=== PATIENT | male | born 1960 | race Caucasian/White ===

== ENCOUNTER → 2022-03-07 | Outpatient (CLI) | payer OTHER ==
[~2022-03-07] MED LIST: ASPI81CH PO; LISHYD2025 PO; METF500C PO; NAPR220 PO; PRAV20 PO; PROP10 PO
[2022-03-13 12:21] LABS: Stool Occult Bld Immuno 1 Positive (NEGATIVE)
== END | disposition home or self-care (01) ==
LOC: LAB 12:00 → LAB SHORT 12:00
PROVIDERS: Physician Assistant
DX: Z12.11 Encounter for screening for malignant neoplasm of colon (principal)
CPT/HCPCS: G0328

== ENCOUNTER 2023-02-12 07:51 | Day surgery (SDC) | payer OTHER ==
[~2023-02-12] VITALS: Ht 180.3 cm; Wt 137.4 kg
[~2023-02-12 07:51] MED LIST changes: +HYDCHL25 PO; +IRBE150 PO; +METO100ER PO; +SPIR25 PO; +ZOCOR20 MG PO
[2023-02-12] MEDS ORDERED: DICLOFENAC SOD100 GM (08:11)
[2023-02-12 10:18] VITALS: BP 112/69
== END 2023-02-12 10:17 | disposition home or self-care (01) ==
LOC: ORSCSDS 07:51
PROVIDERS: Student in an Organized Health Care Education/Training Program
PROC: 0DBN8ZX Excision of Sigmoid Colon, Via Natural or Artificial Opening Endoscopic, Diagnostic (ICD-10-PCS; principal; 2023-02-12 09:15)
PROC: 0DBM8ZX Excision of Descending Colon, Via Natural or Artificial Opening Endoscopic, Diagnostic (ICD-10-PCS; principal; 2023-02-12 09:15)
PROC: 0DBH8ZX Excision of Cecum, Via Natural or Artificial Opening Endoscopic, Diagnostic (ICD-10-PCS; principal; 2023-02-12 09:15)
PROC: 0DBP8ZX Excision of Rectum, Via Natural or Artificial Opening Endoscopic, Diagnostic (ICD-10-PCS; principal; 2023-02-12 09:15)
PROC: 0DBL8ZX Excision of Transverse Colon, Via Natural or Artificial Opening Endoscopic, Diagnostic (ICD-10-PCS; principal; 2023-02-12 09:15)
PROC: 0DBK8ZX Excision of Ascending Colon, Via Natural or Artificial Opening Endoscopic, Diagnostic (ICD-10-PCS; principal; 2023-02-12 09:15)
DX: K92.1 Melena (principal); D12.0 Benign neoplasm of cecum; D12.3 Benign neoplasm of transverse colon; D12.4 Benign neoplasm of descending colon; K63.5 Polyp of colon; K62.1 Rectal polyp; K57.30 Diverticulosis of large intestine without perforation or abscess without bleeding; K64.4 Residual hemorrhoidal skin tags; I10 Essential (primary) hypertension; E78.5 Hyperlipidemia, unspecified; E11.9 Type 2 diabetes mellitus without complications; E66.01 Morbid (severe) obesity due to excess calories; Z68.41 Body mass index [BMI] 40.0-44.9, adult; Z79.84 Long term (current) use of oral hypoglycemic drugs; Z79.899 Other long term (current) drug therapy
CPT/HCPCS: 82947; 88305; J2704; J7120

== ENCOUNTER 2024-01-22 11:19 | Day surgery (SDC) | payer OTHER ==
[~2024-01-22] VITALS: Ht 180.3 cm; Wt 120.6 kg
[~2024-01-22 11:19] MED LIST changes: +DICLOFENAC SOD100 GM TOP; +METF500 PO; +OZEMPIC0.25 MG/02 SC
[2024-01-22] MEDS ORDERED: OxyCODONE HCL 10 MG TABCR PO SCH (12:25)
[2024-01-22] MEDS ORDERED: CeFAZolin Sodium 2,000 MG in NS 100 ML IV SCH (12:25)
[2024-01-22] MEDS ORDERED: Acetaminophen 500 MG Tab PO SCH (12:25)
[2024-01-22] MEDS ORDERED: Lactated Ringer's 1,000 ML IV SCH (12:25)
[2024-01-22] MEDS ORDERED: Chlorhexidine Mouth Care 15 ML UDC MT SCH (12:25)
[2024-01-22] MEDS ORDERED: Ropivacaine 0.5% HCl/Pf 123.125 MG,EPINEPHrine HCL 0.25 MG,Ketorolac Tromethamine 15 MG... INFIL SCH (12:25)
[2024-01-22] MEDS ORDERED: CeFAZolin Sodium 3,000 MG in NS 100 ML IV SCH (12:40)
[2024-01-22 12:49] VITALS: BP 140/85
[2024-01-22] MEDS ORDERED: Tranexamic Acid 100 ML IV SCH (12:55)
--- NOTE | 2024-01-22 13:04 | NUR ---
Ambulatory in Day SurgeryPre-Op teaching done. Pt verbalizes understanding. History, Chart, Medications and Allergies reviewed before start of procedure.Patient confirms NPO status and agrees with scheduled surgery.
[2024-01-22] MEDS ORDERED: Vancomycin HCL 1,000 MG in NS 100 ML IV SCH (13:35)
--- NOTE | 2024-01-22 15:05 | NUR ---
DR ROCHA AT BEDSIDE DISCUSSING PLAN OF CARE WITH PT. PLAN TO CANCEL NOW AND WILL RESCHEDULE NEXT WEEK. DR ROCHA'S OFFICE STAFF WILL CONTACT PT FOR NEW SURGERY DATE. PT STATES HE DOES NOT HAVE A RIDE HOME. SHAHRAM DEVLIN CHARGE CALLED TO [facility]SING [employer] AND PLAN TO GIVE PT A [employer] [facility] [employer] [facility]. PAPERWORK WILL BE FILLED OUT FOR THIS. PT STATES AN UNDERSTANDING ABOUT NEW PLAN OF CARE. QUESTIONS ANSWERED.
[2024-01-22 15:18] VITALS: BP 152/75
--- NOTE | 2024-01-22 15:48 | NUR ---
Patient up to Ambulate independently. Gait steady. Discharged via wheelchair to home via Taxi by Mary
== END 2024-01-22 15:49 | disposition home or self-care (01) ==
LOC: ORSCMMR 11:19 → ORD 14:00 → ORSCMMR 15:49
DX: M17.12 Unilateral primary osteoarthritis, left knee (principal); Z53.9 Procedure and treatment not carried out, unspecified reason
CPT/HCPCS: 82947; A9270; J0171; J0690; J0735; J1885; J2795; J3370; J7120

== ENCOUNTER 2024-01-30 11:12 | Day surgery (SDC) | payer OTHER ==
[~2024-01-30] VITALS: Ht 180.3 cm; Wt 123.1 kg
[2024-01-30] VITALS (13 sets, daily range): BP systolic 100–125; BP diastolic 53–92
[2024-01-30] MEDS ORDERED: Chlorhexidine Mouth Care 15 ML UDC MT SCH (12:10)
[2024-01-30] MEDS ORDERED: Tranexamic Acid 1,000 MG in NS 100 ML IV SCH (12:10)
[2024-01-30] MEDS ORDERED: Ropivacaine 0.5% HCl/Pf 123.125 MG,EPINEPHrine HCL 0.25 MG,Ketorolac Tromethamine 15 MG... INFIL SCH (12:10)
[2024-01-30] MEDS ORDERED: Vancomycin HCL 1,000 MG in NS 100 ML IV SCH (12:10)
[2024-01-30] MEDS ORDERED: OxyCODONE HCL 10 MG TABCR PO SCH (12:10)
[2024-01-30] MEDS ORDERED: CeFAZolin Sodium 3,000 MG in NS 100 ML IV SCH ×2 (12:10→22:00)
[2024-01-30] MEDS ORDERED: Acetaminophen 500 MG Tab PO SCH ×2 (12:10→16:00)
[2024-01-30] MEDS ORDERED: Lactated Ringer's 1,000 ML IV SCH ×2 (12:10→13:10)
[2024-01-30] MEDS ORDERED: propofoL 40 ML IV ONE ×2 (12:13→15:54)
[2024-01-30] MEDS ORDERED: FentaNYL Citrate 50 MCG/ML 2 ML Injection ONE (12:13)
[2024-01-30] MEDS ORDERED: Bupivacaine 0.5% HCl 5 MG/ML 30MLVIAL ONE (12:17)
[2024-01-30] MEDS ORDERED: EpiNEPhrine 1 MG/1 ML 1ML Vial ONE (12:17)
[2024-01-30] MEDS ORDERED: Midazolam HCl 1MG / ML 2ML Vial IV PRN (12:30)
[2024-01-30] MEDS ORDERED: Lidocaine HCl 1% 5 ML SYR XX SCH (12:30)
[2024-01-30] MEDS ORDERED: Tranexamic Acid 100 ML IV SCH (12:30)
--- NOTE | 2024-01-30 13:02 | NUR ---
PT TO SDS VIA WC. PT ABLE TO STAND FOR HEIGHT/WEIGHT. History, Chart, Medications and Allergies reviewed before start of procedure. Lungs clear T/O to Auscultation. Patient confirms NPO status and agrees with scheduled surgery. Pre-Op teaching done. Pt verbalizes understanding. PT BELONGINGS PLACED UNDERNEATH GURNEY FOR SAFEKEEPING. PT GLASSES TAKEN TO PACU FOR SAFEKEEPING.
[2024-01-30] MEDS ORDERED: Promethazine HCl 25 MG Tab PO PRN (13:05)
[2024-01-30] MEDS ORDERED: OxyCODONE HCL 5 MG TAB PO PRN ×2 (13:05)
[2024-01-30] MEDS ORDERED: HYDROmorphone HCl/Pf 1MG SYR IV PRN (13:10)
[2024-01-30] MEDS ORDERED: Metoclopramide HCl 5MG / ML 2ML Vial IV PRN (13:10)
[2024-01-30] MEDS ORDERED: Bisacodyl 10 MG Supp PR PRN (13:10)
[2024-01-30] MEDS ORDERED: Ondansetron HCl 2 MG / ML 2ML Vial IV PRN (13:10)
[2024-01-30] MEDS ORDERED: Magnesium Hydroxide Conc 10 ML UDC PO PRN (13:10)
[2024-01-30] MEDS ORDERED: DiphenhydrAMINE HCL 25 MG Cap PO PRN (13:15)
[2024-01-30] MEDS ORDERED: ePHEDrine Sulfate 50 MG/ML 1ML Injection ONE (14:24)
[2024-01-30] MEDS ORDERED: Vasopressin 20 UNITS/ML 1ML Vial ONE (14:30)
[2024-01-30] MEDS ORDERED: Vancomycin HCl 1000 MG ADDvantage ONE (14:35)
[2024-01-30] MEDS ORDERED: Atropine Sulfate 0.4 MG/1 ML Vial ONE (14:41)
[2024-01-30] MEDS ORDERED: Glycopyrrolate 0.2 MG/ML 5ML VIAL ONE (14:41)
[2024-01-30] MEDS ORDERED: propofoL 80 ML IV ONE (14:44)
[2024-01-30] MEDS ORDERED: Phenylephrine HCl 100 MCG/ML-NS 10MLSYR (1MG/10ML) ONE (15:57)
[2024-01-30] MEDS ORDERED: propofoL 20 ML IV ONE (16:24)
[2024-01-30] MEDS ORDERED: Insulin Regular 100 UNIT/ML 10ML Vial SC SCH (16:30)
[2024-01-30] MEDS ORDERED: MetFORMIN HCl 500 mg PO SCH (17:00)
[2024-01-30] MEDS ORDERED: Ketorolac Tromethamine 15mg Vial IV SCH (18:00)
--- NOTE | 2024-01-30 18:23 | NUR ---
SHIFT SUMMARY PT ARRIVED TO HIS ROOM FROM PACU AT APPROXIMATELY 1800. PT A&OX4 UPON ARRIVAL TO THE ROOM. PT IS ABLE TO MOVE BLE. PT DENIES PAIN. PT TOLERATING PO. CALL LIGHT WITHIN REACH.
[2024-01-30] MEDS ORDERED: Calcium Carbonate 500 MG Tab Chew PO PRN (20:10)
[2024-01-30] MEDS ORDERED: Atorvastatin 10 MG Tab PO SCH (21:00)
[2024-01-30] MEDS ORDERED: Irbesartan 150 MG Tab PO SCH (21:00)
[2024-01-30] MEDS ORDERED: Docusate Sodium 100 MG Cap PO SCH (21:00)
[2024-01-31 00:13] VITALS: BP 115/68
[2024-01-31 00:14] VITALS: BP 115/68
[2024-01-31] MEDS ORDERED: Vancomycin HCL 1,000 MG in NS 100 ML IV SCH (01:00)
[2024-01-31 05:38] LABS: BASOPHILS ABSOLUTE AUTO 0.02 K/mm3 (0.00-0.23); BASOPHILS PERCENT AUTO 0 % (0-2); EOSINOPHILS ABSOLUTE AUTO 0.09 K/mm3 (0.00-0.68); EOSINOPHILS PERCENT AUTO 1 % (0-6); Hematocrit 33.8 % (37.0-53.0); Hemoglobin 10.9 g/dL (13.5-17.5); IMMATURE GRAN ABSOLUTE AUTO 0.03 K/mm3 (0.00-0.10); IMMATURE GRAN PERCENT AUTO 0 % (0-1); LYMPHOCYTES PERCENT AUTO 15 % (21-46); MONOCYTES ABSOLUTE AUTO 0.82 K/mm3 (0.16-1.47); MONOCYTES PERCENT AUTO 12 % (4-13); Mean Corpuscular HGB 31.6 pg (26.0-34.0); Mean Corpuscular HGB Conc 32.2 g/dL (31.5-36.5); Mean Corpuscular Volume 98 fL (80-100); Mean Platelet Volume 10.1 fL (9.1-12.4); NEUTROPHILS ABSOLUTE AUTO 5.07 K/mm3 (1.96-9.15); NEUTROPHILS PERCENT AUTO 71 % (41-73); Platelet Count 177 K/mm3 (150-400); RDW Coefficient Variation 13.3 % (11.7-14.2); RDW Standard Deviation 47.1 fL (35.1-46.3); Red Blood Cell Count 3.45 M/mm3 (4.30-5.90); White Blood Cell Count 7.13 K/mm3 (4.00-11.30)
[2024-01-31 06:10] LABS: Bun/Creatinine Ratio 24.1 (12.0-20.0); Calcium, Blood 8.9 mg/dL (8.5-10.1); Creatinine, Blood 1.37 mg/dL (0.60-1.20); Magnesium, Blood 1.8 mg/dL (1.6-2.4); Potassium, Blood 4.4 mmol/L (3.5-5.5)
[2024-01-31 07:09] VITALS: BP 105/56
--- NOTE | 2024-01-31 07:20 | NUR ---
SHIFT SUMMARY POD 1 L TKA PT ABLE TO REST DURING THE NIGHT. PAIN MANAGED PER EMAR. TOLERATING PO INTAKE, VOIDING. AMB WITH 1 PERS ASST, UP IN CHAIR THIS MORNING. POLAR PAC ON DURING THE NIGHT. DRESSING TO L KNEE C/D/I. VSS. NO OTHER CONCERNS AT THIS TIME CALL LIGHT WITHIN REACH
[2024-01-31] MEDS ORDERED: HydroCHLOROthiazide 25 mg Tab PO SCH (09:00)
[2024-01-31] MEDS ORDERED: Aspirin 81 MG Chew PO SCH (09:00)
[2024-01-31] MEDS ORDERED: Spironolactone 25 MG Tab PO SCH (09:00)
[2024-01-31] MEDS ORDERED: Trimethoprim/Sulfamethoxazole DS Tab PO SCH (09:00)
[2024-01-31] MEDS ORDERED: Metoprolol Succinate 50 MG TABCR PO SCH (09:00)
[2024-01-31] MEDS ORDERED: Aspir 8181 MG PO (09:45)
[2024-01-31] MEDS ORDERED: OXYC5 PO (09:46)
[2024-01-31] MEDS ORDERED: PROM25 PO (09:47)
[2024-01-31] MEDS ORDERED: BACTRIM DS TAB1 EAC6 PO (09:49)
[2024-01-31 11:25] VITALS: BP 93/55
[2024-01-31 12:23] VITALS: BP 104/55
--- NOTE | 2024-01-31 12:40 | NUR ---
DISCHARGE @1237 PT PROVIDED WITH WRITTEN AND VERBAL DISCHARGE INSTRUCTIONS, PT VERBALIZED UNDERSTANDING. PT CLEARED THERAPY, PAIN MANAGED, PT TOLERATING PO AND VSS AT TIME OF DISCHARGE. PT'S BLOOD PRESSURE WAS LOW THIS AM, PT WAS ASYMPTOMATIC. BP HAD IMPROVED PRIOR TO DISCHARGE. PT EDUCATED REGARDING S/S OF LOW BLOOD PRESSURE. PT ALSO EDUCATED TO CHECK HIS BLOOD PRESSURE PRIOR TO TAKING ANTIHYPERTESIVE MEDICATIONS AT HOME. PT ASSISTED OUT IN W/C AT 1237.
== END 2024-01-31 12:37 | disposition home or self-care (01) ==
LOC: ORSCMMR 11:12 → ORD 13:00 → ORSCMMR 13:00 → SURS 17:39 → ORSCMMR 01-31 12:37
PROVIDERS: Orthopaedic Surgery
PROC: 0SRD0J9 Replacement of Left Knee Joint with Synthetic Substitute, Cemented, Open Approach (ICD-10-PCS; principal; 2024-01-30 13:00)
DX: M17.12 Unilateral primary osteoarthritis, left knee (principal); E11.9 Type 2 diabetes mellitus without complications; I10 Essential (primary) hypertension; E78.5 Hyperlipidemia, unspecified; Z79.899 Other long term (current) drug therapy; Z79.84 Long term (current) use of oral hypoglycemic drugs; Z87.891 Personal history of nicotine dependence
CPT/HCPCS: 36415; 73560-LT; 80048; 82947; 83735; 85025; 97110; 97116; 97162; A9270; C1713; C1776; J0171; J0461; J0690; J0735; J1815; J1885; J2250; J2371; J2405; J2704; J2795; J3010; J3370; J7120